=== PATIENT | female | born 1965 | race Caucasian/White ===

== ENCOUNTER 2020-03-15 16:44 | Emergency (ER) | payer OTHER ==
[~2020-03-15] VITALS: Ht 157.5 cm; Wt 79.4 kg
[~2020-03-15 16:44] MED LIST: CLONAZEPAM0.5 MG; DEPAKENE250 MG; LUMIGAN2.5 M1; NORVASC2.5 MG; SIMVASTATIN20 MG; TRUSOPT5 ML
[2020-03-15] MEDS ORDERED: DEPAKOTE ER250 MG (17:31)
[2020-03-15] MEDS ORDERED: SYNTHROID100 MCG (17:32)
== END 2020-03-15 18:48 | disposition home or self-care (01) ==
LOC: ER 16:44
DX: I16.1 Hypertensive emergency (principal); I10 Essential (primary) hypertension; F41.8 Other specified anxiety disorders; F32.89 Other specified depressive episodes; Z03.818 Encounter for observation for suspected exposure to other biological agents ruled out

== ENCOUNTER 2020-03-16 23:47 | Emergency (ER) | payer OTHER ==
[~2020-03-16] VITALS: Ht 154.9 cm; Wt 79.4 kg
[~2020-03-16 23:47] MED LIST changes: +DEPAKOTE ER250 MG; +SYNTHROID100 MCG
== END 2020-03-17 02:25 | disposition home or self-care (01) ==
LOC: ER 23:47
DX: R53.1 Weakness (principal); R53.81 Other malaise; F41.8 Other specified anxiety disorders; F32.89 Other specified depressive episodes; Z03.818 Encounter for observation for suspected exposure to other biological agents ruled out

== ENCOUNTER 2020-06-13 19:43 | Emergency (ER) | payer OTHER ==
[~2020-06-13] VITALS: Ht 154.9 cm; Wt 79.4 kg
[2020-06-13] MEDS ORDERED: CLONAZEPAM0.5 MG (19:50)
[2020-06-13] MEDS ORDERED: COZAAR50 MG (19:50)
== END 2020-06-13 21:34 | disposition home or self-care (01) ==
LOC: ER 19:43
DX: R51 Headache (principal); I10 Essential (primary) hypertension

== ENCOUNTER 2025-06-04 10:00 | Day surgery (SDC) | payer OTHER ==
[~2025-06-04 10:00] MED LIST changes: +COZAAR50 MG
[2025-06-04] MEDS ORDERED: fentaNYL CITRATE 50 MCG/ML AMPUL IV PUSH ONE (15:15)
[2025-06-04] MEDS ORDERED: MIDAZOLAM HCL 2 MG/2 ML VIAL IV ONE (15:15)
[2025-06-04] MEDS ORDERED: DIPHENHYDRAMINE HCL 50 MG/ML VIAL 1ML IV ONE (15:15)
[2025-06-04] MEDS ORDERED: ONDANSETRON HCL 2 MG/ML VIAL IV ONE (15:15)
== END 2025-06-04 16:05 | disposition home or self-care (01) ==
LOC: AMB-ENDOS 10:00
PROVIDERS: ATTEND Colon & Rectal Surgery
DX: D12.5 Benign neoplasm of sigmoid colon (principal); D12.0 Benign neoplasm of cecum; K62.5 Hemorrhage of anus and rectum; K63.5 Polyp of colon; Z88.8 Allergy status to other drugs, medicaments and biological substances